=== PATIENT | female | born 1940 | race Caucasian/White ===

== ENCOUNTER 2017-08-07 09:00 | Day surgery (SDC) | payer MEDICARE, OTHER ==
[~2017-08-07 09:00] MED LIST: AMLO5 PO; CALCAVITD PO; CHOL10002 PO; CITA20 PO; CLOP75; CLOP75 PO; CONEST1.25; CYCL10 PO; DHEA; DIVIGEL; DIVIGEL TOP; EPOE20I SUBQ; ESTRADIOL PO; ESTRADIOL1 MG PO; FERREX; FERREX PO; FURO40 PO; GLIP2.5ER PO; GLIP5 PO; GLIP5ER PO; Iron Supplemen325 MG PO; LACT10SY PO; LOPE2C PO; METO50ER; METO50ER PO; OMEP20ER PO; OMEP40CA12 PO; ONDA4 PO; Omeprazole20 M1 PO; POTA10T; PROG100 PO; RAMI2.5 PO; RAMI5; RAMI5 PO; TRIHYD253A PO; TRIHYD253B; TRIHYD5075 PO; VITAMIN D; ZOLP10 PO; [UNRECOGNIZED DRUG - OTHER]
== END 2017-08-07 12:24 | disposition home or self-care (01) ==
LOC: ORSCMMR 09:00 → ORD 10:30 → ORSCMMR 12:24
PROVIDERS: Surgery
PROC: 0W9F30Z Drainage of Abdominal Wall with Drainage Device, Percutaneous Approach (ICD-10-PCS; principal; 2017-08-07 10:30)
DX: R18.8 Other ascites (principal); K74.60 Unspecified cirrhosis of liver; K76.6 Portal hypertension; I10 Essential (primary) hypertension; I25.10 Atherosclerotic heart disease of native coronary artery without angina pectoris; E11.9 Type 2 diabetes mellitus without complications; J44.9 Chronic obstructive pulmonary disease, unspecified; N18.9 Chronic kidney disease, unspecified; Z79.899 Other long term (current) drug therapy
CPT/HCPCS: 82947; 93005; 93010; C1729; J0690; J1100; J1885; J2250; J2405; J7120